=== PATIENT | female | born 1945 | race Two or more races ===

== ENCOUNTER 2024-11-13 08:25 | Outpatient (AMB) | payer MEDICARE, SELFPAY ==
--- NOTE | 2024-11-13 08:47 | PD.ORTHCLVIS ---
Vital signs 11/13/24 08:48 Height 1.65 m Height Method Measured Weight 91.767 kg Weight Measurement Method Standing Scale BMI 33.6 BP 137/67 H Blood Pressure Source Automatic Cuff Blood Pressure Location Left Upper Arm Position Sitting Respiration 19 Pulse 74 Pulse Source Monitor Temp 97.7 F Temp Source Temporal Artery Scan Pulse Oximetry (%) 97 Oxygen Delivery Method Room Air Med/Allergies Allergies & Medications Allergies Penicillins Allergy (Verified 11/13/24 08:48) Medication Reconciliation acetaminophen 500 mg oral powder packet (Tylenol Extra Strength) 500 mg PO Q6H PRN 11/13/24 [History Confirmed 11/13/24] amlodipine 10 mg tablet 10 mg PO QDAY 11/13/24 [History Confirmed 11/13/24] aspirin 81 mg tablet,delayed release (Alexander Low Dose Aspirin) 81 mg PO QDAY 11/13/24 [History Confirmed 11/13/24] atorvastatin 80 mg tablet 80 mg PO QDAY 11/13/24 [History Confirmed 11/13/24] calcitriol 0.25 mcg capsule 0.25 mcg PO QDAY 11/13/24 [History Confirmed 11/13/24] carvedilol 6.25 mg tablet 6.25 mg PO BID 11/13/24 [History Confirmed 11/13/24] doxazosin 4 mg tablet 4 mg PO QDAY 11/13/24 [History Confirmed 11/13/24] empagliflozin 25 mg tablet (Jardiance) 25 mg PO QAM 11/13/24 [History Confirmed 11/13/24] ferrous sulfate 325 mg (65 mg iron) tablet (FeroSul) 325 mg PO QDAY 11/13/24 [History Confirmed 11/13/24] glipizide 5 mg tablet 5 mg PO QDAY 11/13/24 [History Confirmed 11/13/24] omega-3 fatty acids 1,250 mg capsule 1,250 mg PO QDAY 11/13/24 [History Confirmed 11/13/24] Exam Exam Patient is in no acute distress and is cooperative with the examination today. Breathing is nonlabored. In no respiratory distress. Bilateral extremities were evaluated and demonstrates sensation intact to light touch. Palpable pedal pulses are present. No significant edema is present. Bilateral hips were examined. The patient has no pain with log roll of the hips. Internal rotation to 30 degrees and external rotation to 30 degrees is painless. Negative FADIR. The left knee was examined. The left knee is in valgus alignment. Range of motion from 0-115 degrees. Knee is stable to varus and valgus as well as AP translation with <5mm. Patient has a negative McMurrays. There is no pain with patellofemoral compression and no crepitus noted. The knee is tender to palpation laterally. The right knee was also examined. The right knee is in valgus alignment. Range of motion from 0-120 degrees. Knee has >5mm translation IN varus and valgus as well as AP translation with >5mm. Patient has a negative McMurrays. There is no pain with patellofemoral compression and no crepitus noted. The knee is tender to palpation laterally. Bilateral knee x-rays demonstrate significant joint space narrowing Both medially and laterally on the right and valgus arthritis of the left Assessment and Plan Problem List (1) Degenerative arthritis of knee, bilateral: Status: Acute Plan: Patient is a 78-year-old female with bilateral significant severity. We discussed nonoperative and operative options. At this point in time she has failed conservative treatment. She will need medical clearance and cardiac clearance prior to proceeding with surgery as she looks quite fragile. The right knee pain is worse and we will start on the right. Plan The nature and purpose of the total knee replacement, alternative method(s) of treatment, the material risks involved, and the possibility of complications were fully explained to the patient. The patient does NOT have any of the following contraindications to TKA: - Active infection of the knee joint, OR - Active systemic bacteremia, OR - Active skin infection or open wound at surgical site, OR - Neuropathic arthritis, OR - Severe, rapidly progressive neurological disease, OR - Severe medical condition that makes risks of surgery outweigh the potential benefit The patient was told the most common risks and complications associated with a total knee replacement include, but are not limited to: blood clots in the leg, fatal pulmonary embolism, dislocation of the prosthesis, intraoperative and postoperative fractures of the femur or tibia, infection, failure of the prosthesis or grafting materials, complications from anesthesia, reactions to blood transfusions, postoperative leg length inequality, instability of the knee replacement, nerve damage or injury, vascular injury, delayed wound healing, infection, other injury or even . In addition, there are risks associated with anesthesia given during this operation. Also, the patient was told that after undergoing a total knee replacement there may still be persistent pain or disability. The patient was informed that the success of this operation in part depends upon the mechanical devices which are going to be implanted and that these devices can fail or malfunction, and may need to be repaired or replaced and there are no guarantees as to the longevity of this device or its parts and that it or its parts could fail prematurely. The patient was also notified that during the course of surgery, there may be a need to use bone graft from donors, and that any bone graft used will be carefully screened for communicable diseases, including AIDS, hepatitis, Brady-Creutzfeldt, or other diseases, but despite the screening procedures, there is a small chance that they could contract one of these diseases. Finally, the patient was asked to follow completely and fully with all advice and recommended treatments, and that recovery and ultimate outcome are affected by their compliance with recommended treatment. We discussed the risks, benefits and treatment alternatives, and the patient is interested in proceeding with surgery. We will try to set this up as expeditiously as possible. Advanced Care Planning Discussion Advance care planning discussed with:: patient and child Office Procedures GNS Level of Care Nursing/Assessment Patient Status: Initial/New Patient Nursing Assessment/Reassesment: Medication Reconciliation, Update PMH in EMR and Vital Signs Coordination of Care: Complex Care and Chronic Disease 1-5, Education Complex Pt/Fam, Consent,records obtained, informed consent, 1 Ins Authorization, Lab and Imaging orders, Results/Orders obtained and Staff clarify orders Special Needs: Language special needs New Patient Charge New Patient Point Assignment: 1124 New Patient Point Charge: MAINTENANCE MECHANIC TECHNICIAN Level 4 (0948-2120) MA Intake Visit Data Collection New Patient or Established: New Patient (never been to [facility]) Reason for Visit:: BILATERAL KNEE PAIN-RIGHT WORSE Seen by Clinical Staff ONLY (RN/MA): No Treating Plant Pumper Required: Yes PCP or OBGYN visit in last 3 months: Yes Hx Now: No Do You Feel Safe at Home: Yes Authorities Contacted: N/A Questionairres Past Medical History Past Medical History Have you ever been diagnosed with any of the following: Cardiology Problems Heart Murmur: Yes Hypercholesterolemia: Yes Hypertension: Yes Respiratory Problems Smoking: No Smoking Exposure: No Blood Problems Anemia: Yes Subjective Visit Visit for: new patient and knee Immunization / Flu Flu Vaccine in the Last 12 Months: No Flu Vaccine Exclusion Criteria: No Exclusion Criteria History of Present Illness Chief complaint: bl knee pain Patient is a pleasant 78-year-old female with bilateral knee pain and bilateral knee arthritis. This has been ongoing for quite a while. She has tried over 5 injections in each knee with minimal relief. She does have a history of kidney disease and cannot take anti-inflammatories. She tried physical therapy but it was too painful. She can walk less than 1 block Pain Pain level (0-10): 9 Pain duration: ALL DAY Pain location: inside (medial), outside (lateral), anterior and posterior Pain quality: sharp, dull and aching Pain timing: night, increases with activity and stairs Associated signs & symptoms: other (specify) (RUBBING) Ambulatory data Ambulatory device: walker Treatments Number of previous injections: 5 (BILATERAL KNEE) Improvement with previous injections: No Improvement with PT: No Improvement with NSAIDS: no Review of Systems Review of Systems: All systems negative unless otherwise noted in HPI.
[2024-11-13 08:48] VITALS: BP 137/67; PULSE 74; RESP 19; TEMP 36.5; O2SAT 97; BMI 33.6
== END 2024-11-13 09:11 | disposition home or self-care (01) ==
LOC: HODSRG 08:25
PROVIDERS: PCP Physician Assistant Medical; Referring Provider Physician Assistant Medical; Supervising Provider Orthopaedic Surgery Adult Reconstructive Orthopaedic Surgery; Visit Provider Orthopaedic Surgery Adult Reconstructive Orthopaedic Surgery
DX: M17.0 Bilateral primary osteoarthritis of knee (principal); M25.561 Pain in right knee; I10 Essential (primary) hypertension; E78.00 Pure hypercholesterolemia, unspecified
CPT/HCPCS: 99204; G0463

== ENCOUNTER 2025-04-23 08:44 | Outpatient (AMB) | payer MEDICARE, SELFPAY ==
--- NOTE | 2025-04-23 09:22 | ORTHONT_ITS ---
Vital signs 04/23/25 09:25 Height 1.65 m Height Method Stated Weight 93.695 kg Weight Measurement Method Standing Scale BMI 34.4 BP 129/69 Blood Pressure Source Automatic Cuff Blood Pressure Location Left Upper Arm Position Sitting Respiration 18 Pulse 79 Pulse Source Monitor Temp 97.7 F Temp Source Temporal Artery Scan Pulse Oximetry (%) 95 Oxygen Delivery Method Room Air Med/Allergies Allergies & Medications Allergies Penicillins Allergy (Verified 04/23/25 09:26) Medication Reconciliation acetaminophen 500 mg oral powder packet (Tylenol Extra Strength) 500 mg PO Q6H PRN 11/13/24 [History Confirmed 11/13/24] amlodipine 10 mg tablet 10 mg PO QDAY 11/13/24 [History Confirmed 11/13/24] atorvastatin 80 mg tablet 80 mg PO QDAY 11/13/24 [History Confirmed 11/13/24] calcitriol 0.25 mcg capsule 0.25 mcg PO QDAY 11/13/24 [History Confirmed 11/13/24] carvedilol 6.25 mg tablet 6.25 mg PO BID 11/13/24 [History Confirmed 11/13/24] doxazosin 4 mg tablet 4 mg PO QDAY 11/13/24 [History Confirmed 11/13/24] empagliflozin 25 mg tablet (Jardiance) 25 mg PO QAM 11/13/24 [History Confirmed 11/13/24] ferrous sulfate 325 mg (65 mg iron) tablet (FeroSul) 325 mg PO QDAY 11/13/24 [History Confirmed 11/13/24] glipizide 5 mg tablet 5 mg PO QDAY 11/13/24 [History Confirmed 11/13/24] omega-3 fatty acids 1,250 mg capsule 1,250 mg PO QDAY 11/13/24 [History Confirmed 11/13/24] Exam Exam Patient is in no acute distress and is cooperative with the examination today. Breathing is nonlabored. In no respiratory distress. Bilateral extremities were evaluated and demonstrates sensation intact to light touch. Palpable pedal pulses are present. No significant edema is present. Bilateral hips were examined. The patient has no pain with log roll of the hips. Internal rotation to 30 degrees and external rotation to 30 degrees is painless. Negative FADIR. The left knee was examined. The left knee is in valgus alignment. Range of mot ion from 0-115 degrees. Knee is stable to varus and valgus as well as AP translation with <5mm. Patient has a negative McMurrays. There is no pain with patellofemoral compression and no crepitus noted. The knee is tender to palpation laterally. The right knee was also examined. The right knee is in valgus alignment. Range of motion from 0-120 degrees. Knee has >5mm translation IN varus and valgus as well as AP translation with >5mm. Patient has a negative McMurrays. There is no pain with patellofemoral compression and no crepitus noted. The knee is tender to palpation laterally. Bilateral knee x-rays demonstrate significant joint space narrowing Both medially and laterally on the right and valgus arthritis of the left Assessment and Plan Problem List (1) Degenerative arthritis of knee, bilateral: Status: Acute Plan: Patient is a 78-year-old female with bilateral significant severity. We discussed nonoperative and operative options. At this point in time she has failed conservative treatment. She received a cardiac clearance and a renal clearance Plan The nature and purpose of the total knee replacement, alternative method(s) of treatment, the material risks involved, and the possibility of complications were fully explained to the patient. The patient does NOT have any of the following contraindications to TKA: - Active infection of the knee joint, OR - Active systemic bacteremia, OR - Active skin infection or open wound at surgical site, OR - Neuropathic arthritis, OR - Severe, rapidly progressive neurological disease, OR - Severe medical condition that makes risks of surgery outweigh the potential benefit The patient was told the most common risks and complications associated with a total knee replacement include, but are not limited to: blood clots in the leg, fatal pulmonary embolism, dislocation of the prosthesis, intraoperative and postoperative fractures of the femur or tibia, infection, failure of the prosthesis or grafting materials, complications from anesthesia, reactions to blood transfusions, postoperative leg length inequality, instability of the knee replacement, nerve damage or injury, vascular injury, delayed wound healing, i nfection, other injury or even . In addition, there are risks associated with anesthesia given during this operation. Also, the patient was told that after undergoing a total knee replacement there may still be persistent pain or disability. The patient was informed that the success of this operation in part depends upon the mechanical devices which are going to be implanted and that these devices can fail or malfunction, and may need to be repaired or replaced and there are no guarantees as to the longevity of this device or its parts and that it or its parts could fail prematurely. The patient was also notified that during the course of surgery, there may be a need to use bone graft from donors, and that any bone graft used will be carefully screened for communicable diseases, including AIDS, hepatitis, Brady-Creutzfeldt, or other diseases, but despite the screening procedures, there is a small chance that they could contract one of these diseases. Finally, the patient was asked to follow completely and fully with all advice and recommended treatments, and that recovery and ultimate outcome are affected by their compliance with recommended treatment. We discussed the risks, benefits and treatment alternatives, and the patient is interested in proceeding with surgery. We will try to set this up as expeditiously as possible. Advanced Care Planning Discussion Advance care planning discussed with:: patient and child Office Procedures GNS Level of Care Nursing/Assessment Patient Status: Established Patient Nursing Assessment/Reassesment: Medication Reconciliation, Update PMH in EMR and Vital Signs Coordination of Care: Complex Care and Chronic Disease 1-5, Education Complex Pt/Fam, Consent,records obtained, informed consent, Results/Orders obtained and Staff clarify orders Special Needs: Language special needs Established Patient Charge Established Patient Point Assignment: 95 Established Patient Point Charge: EP Level 3 (80-115) MA Intake Visit Data Collection New Patient or Established: Established Patient (seen at [facility] within 3 years) Reason for Visit:: PRE OP R TKA Seen by Clinical Staff ONLY (RN/MA): No Vibrator Equipment Tester Required: Yes PCP or OBGYN visit in last 3 months: Yes Hx Now: No Do You Feel Safe at Home: Yes Authorities Contacted: N/A Questionairres Past Medical History Past Medical History Have you ever been diagnosed with any of the following: Cardiology Problems Heart Murmur: Yes Hypercholesterolemia: Yes Hypertension: Yes Respiratory Problems Smoking: No Smoking Exposure: No Blood Problems Anemia: Yes Subjective Visit Visit for: follow up visit and knee (RIGHT) Immunization / Flu Flu Vaccine in the Last 12 Months: No Flu Vaccine Exclusion Criteria: No Exclusion Criteria History of Present Illness Chief complaint: PRE OP R TKA Patient is a pleasant 78-year-old female with bilateral knee pain and bilateral knee arthritis. This has been ongoing for quite a while. She has tried over 5 injections in each knee with minimal relief. She does have a history of kidney disease and cannot take anti-inflammatories. She tried physical therapy but it was too painful. She can walk less than 1 block. She is getting a kidney biopsy and may need a renal clearance. Personal History Additional comments: PATIENT HAS HER OWN WALKER, PER PT MAINTENANCE SUPERVISOR ELECTRICAL NOTIFIED HER TO STOP ASPIRIN-NO LONGER TAKING. AWARE TO NOT TAKE PRIOR TO SX Pain Pain level (0-10): 9 Pain duration: ALL DAY Pain location: inside (medial), outside (lateral), anterior and posterior Pain quality: sharp, dull and aching Pain timing: night, increases with activity and stairs Associated signs & symptoms: other (specify) (RUBBING) Ambulatory data Ambulatory device: walker Treatments Number of previous injections: 5 (BILATERAL KNEE) Improvement with previous injections: No Improvement with PT: No Improvement with NSAIDS: no Review of Systems Review of Systems: All systems negative unless otherwise noted in HPI.
[2025-04-23 09:25] VITALS: BP 129/69; PULSE 79; RESP 18; TEMP 36.5; O2SAT 95; BMI 34.4
== END 2025-04-23 09:46 | disposition home or self-care (01) ==
LOC: HODSRG 08:44
PROVIDERS: PCP Physician Assistant Medical; Referring Provider Physician Assistant Medical; Supervising Provider Orthopaedic Surgery Adult Reconstructive Orthopaedic Surgery; Visit Provider Orthopaedic Surgery Adult Reconstructive Orthopaedic Surgery
DX: M25.562 Pain in left knee (principal); M25.561 Pain in right knee; M17.0 Bilateral primary osteoarthritis of knee; I10 Essential (primary) hypertension
CPT/HCPCS: 99213; G0463

== ENCOUNTER → 2025-04-23 | Outpatient (CLI) | payer MEDICARE, SELFPAY ==
--- NOTE | 2025-04-23 10:00 | XR_ITS ---
Examination: CT right lower extremity, without contrast. 2-D sagittal reconstructions. 2-D coronal reconstructions. 3-D reconstructions. Date and time of exam: April 23, 2025, 1010 hours INDICATIONS: Diagnosis primary unilateral osteoarthritis right knee, right knee pain several years CTDI: vol (mGy): 15.2 DLP: (mGycm): 1171 Technique: Multiple 1.25 mm axial sections of the right lower extremity without intravenous contrast have been obtained. 2-D sagittal and coronal reconstructions have been obtained. 3-D reconstructions have been obtained. Low dose protocols were performed. One or more of the following dose reduction techniques were used; automated exposure control, adjustment of the mA and/or KV according to patient size, use of iterative reconstruction technique. Findings: Severe osteopenia Moderate right hip osteoarthritis No right hip fracture or dislocation Advanced right knee tricompartment osteoarthritis No fracture No patellar dislocation IMPRESSION: Advanced right knee tricompartment osteoarthritis
== END | disposition home or self-care (01) ==
PROVIDERS: Referring Provider Orthopaedic Surgery Adult Reconstructive Orthopaedic Surgery; Visit Provider Orthopaedic Surgery Adult Reconstructive Orthopaedic Surgery
DX: M17.11 Unilateral primary osteoarthritis, right knee (principal)
CPT/HCPCS: 73700

== ENCOUNTER 2025-05-11 07:00 | Day surgery (SDC) | payer MEDICARE, SELFPAY ==
--- NOTE | 2025-05-08 11:20 | EKG_ITS ---
[facility] Test Date: 2025-05-08 Pat Name: NILAM CUNNINGHAM Department: Room: - Gender: Female Sales And Marketing Intern: EDDIE : 1945 Requested By: Trace Charles Order Number: [id number] Reading MD: Trace Charles Measurements Intervals [place] Rate: 71 P: 58 SC: 225 QRS: -34 QRSD: 136 T: 40 QT: 374 QTc: 407 Interpretive Statements SINUS RHYTHM WITH FIRST DEGREE AV BLOCK MARKED LEFT AXIS DEVIATION [QRS AXIS < -30] INTRAVENTRICULAR CONDUCTION DELAY [130+ ms QRS DURATION] POSSIBLE ANTERIOR MYOCARDIAL INFARCTION , OF INDETERMINATE AGE [30 ms Q WAVE IN V3/V4, OR R < 0.2 mV IN V4] No previous ECG available for comparison /store/S0/[id number]
[2025-05-08 11:29] VITALS: BMI 34.7
[2025-05-08 13:22] LABS: Basophils # (Auto) 0.1 Thou/mm3 (0.0-0.2); Basophils % (Auto) 1 % (0-2.5); Eosinophils # (Auto) 0.4 Thou/mm3 (0.0-0.5); Eosinophils % (Auto) 5 % (0-10); Hematocrit 32.5 % (36.0-46.0); Hemoglobin 10.7 g/dL (12.0-16.0); Immature Granulocytes Auto 0.03 Thou/mm3 (0.00-0.00); Lymphocytes # (Auto) 1.4 Thou/mm3 (1.0-4.8); Lymphocytes % (Auto) 15 % (10-50); Mean Corpuscular HGB Conc 32.9 g/dl (31.0-37.0); Mean Corpuscular Hemoglobin 29.1 pg (25.0-35.0); Mean Corpuscular Volume 88 fL (80-100); Monocytes # (Auto) 1.0 Thou/mm3 (0.0-0.8); Monocytes % (Auto) 11 % (0-12); Neutrophils # (Auto) 6.0 Thou/mm3 (1.8-7.7); Neutrophils % (Auto) 68 % (37-80); Nucleated Red Blood Cell # 0.00 Thou/mm3 (0.00-0.00); Nucleated Red Blood Cell % 0 /100 WBC (0); Platelet Count 373 Thou/mm3 (140-440); RDW Standard Deviation 45.7 fL (36.4-46.3); Red Blood Count 3.68 Miln/mm3 (4.00-5.20); White Blood Count 8.9 Thou/mm3 (3.6-11.0)
[2025-05-08 13:28] LABS: INR 1.0 (0.9-1.3); Partial Thromboplastin Time 26.0 Seconds (22.0-36.0); Prothrombin Time 10.3 Seconds (9.0-12.2)
[2025-05-08 13:29] LABS: Alanine Aminotransferase 9 U/L (10-49); Albumin, Serum 4.4 gm/dL (3.4-4.8); Albumin/Globulin Ratio 1.6 (1.2-2.2); Alkaline Phosphatase 80 U/L (46-116); Anion Gap 10 (7-16); Aspartate Amino Transferase 12 U/L (0-34); BUN/Creatinine Ratio 28 Ratio (12-20); Bilirubin,Total 0.4 mg/dL (0.3-1.2); Blood Urea Nitrogen 62 mg/dL (9-23); Calcium 9.8 mg/dL (8.3-10.6); Calcium (Corrected) 9.8 mg/dL (8.5-10.1); Carbon Dioxide 25.2 mMol/L (20.0-31.0); Chloride 101 mMol/L (98-107); Creatinine (Component) 2.2 mg/dL (0.6-1.3); Estimated Creatinine Clearance 23.1 mL/min (>60); Globulin 2.7 gm/dL (2.3-3.5); Glucose 128 mg/dL (74-106); Osmolality,Calculated 291 (275-295); Potassium 4.9 mMol/L (3.4-5.1); Sodium 136 mMol/L (136-145); Total Protein 7.1 gm/dL (5.7-8.2); eGFR 22 See Note
[2025-05-11 07:45] VITALS: BP 143/70; PULSE 74; RESP 14; TEMP 36.2; O2SAT 95; BMI 34.2
--- NOTE | 2025-05-11 07:45 | SUR.PREOP ---
Unable to palpate pedal pulses to right lower extremity due to edema, Dr Padilla made aware of swelling/edema to right lower extremity and scattered large bruises to pts face/arms/legs
--- NOTE | 2025-05-11 08:18 | SUR.PREOP ---
Patient expressed gratitude for prayer before their procedure.
--- NOTE | 2025-05-11 08:20 | SUR.PREOP ---
surgery cancelled per Dr Castro due to lower extremity edema to surgical side, Dr Castro at bedside to educate pt to follow up with physicians using telephone bilingual interpreter, pt verbalized understanding and agrees.
== END 2025-05-11 08:24 | disposition home or self-care (01) ==
LOC: S2EX 07:17
PROVIDERS: Anesthesiology; PCP Nurse Practitioner Family; Referring Provider Orthopaedic Surgery Adult Reconstructive Orthopaedic Surgery; Visit Provider Orthopaedic Surgery Adult Reconstructive Orthopaedic Surgery
PROC: 8E0Y0CZ Robotic Assisted Procedure of Lower Extremity, Open Approach (ICD-10-PCS; CPT 27446; principal; 2025-05-11 10:00)
DX: M17.0 Bilateral primary osteoarthritis of knee (principal); Z01.810 Encounter for preprocedural cardiovascular examination; Z53.8 Procedure and treatment not carried out for other reasons
CPT/HCPCS: 36415; 80053; 85025; 85610; 85730; 93005; A4649

== ENCOUNTER → 2025-05-13 | Outpatient (CLI) | payer MEDICARE, SELFPAY ==
--- NOTE | 2025-05-13 15:41 | XR_ITS ---
Examination: Venous duplex lower extremity sonogram, bilateral. Date and time of exam: May 13, 2025, 1554 hours INDICATIONS: Right leg swelling beginning 8 months ago Technique: Multiple sonographic images of the deep venous system have been obtained. B-mode/2-D grayscale imaging of vascular structures and Doppler spectral analysis (waveforms) and color performed Both legs are examined. Findings: Deep venous systems do not demonstrate abnormal echogenicity. All visualized deep veins exhibit compressibility. All visualized deep veins exhibit augmentation Right popliteal cyst 7.3 cm, left popliteal cyst 4.6 cm. Impression: Negative for deep vein thrombosis
== END | disposition home or self-care (01) ==
PROVIDERS: Referring Provider Orthopaedic Surgery Adult Reconstructive Orthopaedic Surgery; Visit Provider Orthopaedic Surgery Adult Reconstructive Orthopaedic Surgery
DX: R60.9 Edema, unspecified (principal)
CPT/HCPCS: 93970

== ENCOUNTER 2025-05-19 14:37 | Outpatient (AMB) | payer MEDICARE, SELFPAY ==
--- NOTE | 2025-05-19 14:14 | ORTHONT_ITS ---
Med/Allergies Allergies & Medications Allergies Penicillins Allergy (Verified 05/19/25 14:14) Medication Reconciliation amlodipine 10 mg tablet 10 mg PO QDAY 11/13/24 [History Confirmed 05/19/25] atorvastatin 80 mg tablet 80 mg PO QDAY 11/13/24 [History Confirmed 05/19/25] carvedilol 6.25 mg tablet 6.25 mg PO BID 11/13/24 [History Confirmed 05/19/25] doxazosin 4 mg tablet 4 mg PO QDAY 11/13/24 [History Confirmed 05/19/25] ferrous sulfate 325 mg (65 mg iron) tablet (FeroSul) 325 mg PO QDAY 11/13/24 [History Confirmed 05/19/25] omega-3 fatty acids 1,250 mg capsule 1,250 mg PO QDAY 11/13/24 [History Confirmed 05/19/25] acetaminophen 500 mg tablet (Acetaminophen Extra Strength) 500 mg PO Q6H PRN pain 05/08/25 [History Confirmed 05/19/25] aspirin 81 mg tablet,delayed release (Tyler Aspirin) 81 mg PO QDAY 05/08/25 [History Confirmed 05/19/25] cetirizine 5 mg/5 mL oral solution 5 mg PO QDAY 05/08/25 [History Confirmed 05/19/25] cholecalciferol (vitamin D3) 50 mcg (2,000 unit) tablet (D3 DOTS) 50 mcg PO QDAY 05/08/25 [History Confirmed 05/19/25] empagliflozin 10 mg tablet (Jardiance) 10 mg PO QAM 05/08/25 [History Confirmed 05/19/25] furosemide 40 mg/4 mL oral solution 20 mg PO QAM 05/19/25 [History Confirmed 05/19/25] losartan 25 mg tablet 25 mg PO QDAY 05/19/25 [History Confirmed 05/19/25] Subjective Visit Visit for: follow up visit Immunization / Flu Flu Vaccine in the Last 12 Months: No Flu Vaccine Exclusion Criteria: No Exclusion Criteria History of Present Illness Chief complaint: US DVT RESULTS Patient is a 71-year-old female with right knee pain and right knee arthritis. Her surgery is canceled due to significant swelling in her right leg. We get a DVT ultrasound which is negative. We want her to go to her primary care provider to see a vein specialist or a vascular specialist. She has asymmetric swelling of the right knee with significant pitting edema of the right lower leg Pain Pain level (0-10): 0 Associated signs & symptoms: none Ambulatory data Ambulatory device: walker Treatments Improvement with previous injections: No Improvement with PT: No Improvement with NSAIDS: no Review of Systems Review of Systems: All systems negative unless otherwise noted in HPI. Assessment and Plan Problem List (1) Degenerative arthritis of knee, bilateral: Status: Acute Plan: Patient is a 78-year-old female with bilateral significant severity. We discussed nonoperative and operative options. At this point in time she has failed conservative treatment. She received a cardiac clearance and a renal clearance Plan She has significant swelling we want her to see a vascular surgeon prior to proceeding. The asymmetric swelling is a little bizarre. This needs to be worked up prior to proceeding with surgery and she is encouraged to see her pcp. Advanced Care Planning Discussion Advance care planning discussed with:: patient and child Office Procedures GNS Level of Care Nursing/Assessment Patient Status: Established Patient Nursing Assessment/Reassesment: Medication Reconciliation, Update PMH in EMR and Vital Signs Coordination of Care: Complex Care and Chronic Disease 1-5, Education Complex Pt/Fam, Consent,records obtained, informed consent, Results/Orders obtained and Staff clarify orders Special Needs: Language special needs Established Patient Charge Established Patient Point Assignment: 95 Telehealth If patient is seen using Teleconference methods, complete New/Est section, but DO NOT lottie points only lottie the correct Telemed visit type Telemed Phone/Video with patient at home & ,PA,FURNITURE DELIVERY DRIVER: Yes
== END 2025-05-19 14:49 | disposition home or self-care (01) ==
LOC: HODSRG 14:37
PROVIDERS: Supervising Provider Orthopaedic Surgery Adult Reconstructive Orthopaedic Surgery; Visit Provider Orthopaedic Surgery Adult Reconstructive Orthopaedic Surgery
DX: M17.0 Bilateral primary osteoarthritis of knee (principal); M25.561 Pain in right knee; R60.9 Edema, unspecified
CPT/HCPCS: 99212; G0463